=== PATIENT | female | born 1960 | race Two or more races ===

== ENCOUNTER → 2018-11-19 | Outpatient (CLI) | payer OTHER | END | disposition home or self-care (01) | LOC: NUCLEAR 07:00 | DX: I20.9 Angina pectoris, unspecified (principal) ==

== ENCOUNTER 2022-01-25 14:38 | Emergency (ER) | payer OTHER ==
[~2022-01-25] VITALS: Ht 180.3 cm; Wt 83.5 kg
[2022-01-25] MEDS ORDERED: [UNRECOGNIZED DRUG - OTHER] MC (14:46)
[2022-01-25] MEDS ORDERED: ANIMAL CHEWS1 EACH PO (14:46)
[2022-01-25] MEDS ORDERED: BACTRIM DS TAB1 EACH PO (18:02)
[2022-01-25] MEDS ORDERED: PEPCID AC20 MG PO (18:02)
== END 2022-01-25 18:04 | disposition home or self-care (01) ==
LOC: ER 14:38
DX: N39.0 Urinary tract infection, site not specified (principal); Z91.040 Latex allergy status; I10 Essential (primary) hypertension; B39.9 Histoplasmosis, unspecified; K80.20 Calculus of gallbladder without cholecystitis without obstruction

== ENCOUNTER 2024-05-12 10:15 | Inpatient (IN) | payer OTHER ==
[~2024-05-12] VITALS: Ht 58.4 cm; Wt 86.2 kg
[~2024-05-12 10:15] MED LIST: ANIMAL CHEWS1 EACH PO; BACTRIM DS TAB1 EACH PO; PEPCID AC20 MG PO; [UNRECOGNIZED DRUG - OTHER] MC
[2024-05-12 11:43] VITALS: BP 153/98
[2024-05-12] MEDS ORDERED: COZAAR25 MG PO (11:45)
[2024-05-12 11:46] VITALS: BP 138/84
[2024-05-21] MEDS ORDERED: CEFAZOLIN SODIUM 1,000 MG VIAL IV ONE (09:00)
[2024-05-21] MEDS ORDERED: POVIDONE-IODINE 118 ML BOTT TOP ONE (09:00)
[2024-05-21] MEDS ORDERED: MORPHINE SULFATE 4 MG/ML VIAL IV ONE ×2 (11:30→12:00)
[2024-05-21] MEDS ORDERED: PROMETHAZINE HCL 50 MG/ML AMPUL IM PRN (11:30)
[2024-05-21] MEDS ORDERED: RINGERS SOLUTION,LACTATED 1,000 ML IV SCH (11:30)
[2024-05-21] MEDS ORDERED: MEPERIDINE HCL/PF 50 MG/ML VIAL IM PRN (11:30)
[2024-05-21] MEDS ORDERED: CEFAZOLIN SODIUM 1,000 MG VIAL IV SCH (14:00)
[2024-05-21 18:45] VITALS: BP 138/84
[2024-05-22 00:08] VITALS: BP 107/69
[2024-05-22 01:49] LABS: HEMATOCRIT 33.4 % (36.0-45.00); HEMOGLOBIN 11.6 g/dL (12.0-15.00); MEAN CELL VOLUME 87.1 fL (80.00-100.00); MEAN CORPUSCULAR HEMOGLOBIN 30.4 pg (27.00-32.0); MEAN CORPUSCULAR HGB CONC 34.9 g/dl (32.0-36.0); PLATELET COUNT 192 K/uL (150-450); RED BLOOD COUNT 3.83 M/uL (4.00-6.00); RED CELL DISTRIBUTION WIDTH 14.3 % (11.5-14.5)
[2024-05-22 05:00] VITALS: BP 100/66
[2024-05-22] MEDS ORDERED: ACETAMINOPHEN 500 MG GEL..CAP PO PRN (08:30)
[2024-05-22] MEDS ORDERED: IBUprofen 800 MG TABLET PO PRN (08:30)
[2024-05-22] MEDS ORDERED: LOSARTAN POTASSIUM 25 MG TABLET PO SCH (09:00)
[2024-05-22 13:53] VITALS: BP 118/73
[2024-05-22 16:00] VITALS: BP 134/80
[2024-05-22 23:53] VITALS: BP 112/77
[2024-05-23 05:00] VITALS: BP 135/87
[2024-05-23 08:12] VITALS: BP 133/88
[2024-05-23] MEDS ORDERED: CIPROFLOXACIN HCL 500 MG TABLET PO NR (10:00)
[2024-05-23 18:14] VITALS: BP 140/90
[2024-05-23] MEDS ORDERED: CIPROFLOXACIN HCL 500 MG TABLET PO SCH (21:00)
[2024-05-24 00:41] VITALS: BP 113/74
[2024-05-24 08:04] VITALS: BP 137/78
[2024-05-24] MEDS ORDERED: IBUPROFEN800 MG PO (08:16)
== END 2024-05-24 09:43 | disposition home or self-care (01) | DRG 743 ==
LOC: O/R 05-21 04:41 → OB/GYN 05-21 07:00
PROVIDERS: ADMIT Specialist; ATTEND Specialist
PROC: 0JQC0ZZ Repair Pelvic Region Subcutaneous Tissue and Fascia, Open Approach (ICD-10-PCS; 2024-05-21)
PROC: 0UT97ZZ Resection of Uterus, Via Natural or Artificial Opening (ICD-10-PCS; principal; 2024-05-21 07:00)
DX: N81.4 Uterovaginal prolapse, unspecified (principal); N80.03 Adenomyosis of the uterus; Z20.822 Contact with and (suspected) exposure to COVID-19

== ENCOUNTER 2024-06-21 15:11 | Emergency (ER) | payer OTHER ==
[~2024-06-21] VITALS: Ht 180.3 cm; Wt 83.5 kg
[~2024-06-21 15:11] MED LIST changes: +COZAAR25 MG PO; +IBUPROFEN800 MG PO
[2024-06-21 15:29] VITALS: BP 140/80; O2SAT 99
[2024-06-21] MEDS ORDERED: KETOROLAC TROMETHAMINE 60 MG VIAL IM ONE ×2 (16:43→16:45)
[2024-06-21] MEDS ORDERED: MECLIZINE HCL 25 MG TABLET PO ONE ×2 (16:44→16:45)
[2024-06-21 17:48] LABS: HEMATOCRIT 39.3 % (36.0-45.00); HEMOGLOBIN 13.2 g/dL (12.0-15.00); MEAN CELL VOLUME 87.8 fL (80.00-100.00); MEAN CORPUSCULAR HEMOGLOBIN 29.5 pg (27.00-32.0); MEAN CORPUSCULAR HGB CONC 33.6 g/dl (32.0-36.0); PLATELET COUNT 215 K/uL (150-450); RED BLOOD COUNT 4.47 M/uL (4.00-6.00); RED CELL DISTRIBUTION WIDTH 14.2 % (11.5-14.5)
[2024-06-21 18:03] LABS: PH,URINE 5.5 (5.0-8.0); URINE APPEARANCE Clear; URINE BILIRRUBIN Negative (NEGATIVE); URINE BLOOD Negative; URINE COLOR Dark Yellow; URINE GLUCOSE Negative (NEGATIVE); URINE KETONE Negative (NEGATIVE); URINE LEUKOCYTE Small; URINE NITRATE Negative; URINE PROTEIN Negative (NEGATIVE); URINE UROBILINOGEN 0.2 E.U./dl
[2024-06-21 18:04] LABS: URINE BACTERIA 1479.6 uL (0.0-1933); URINE RBC 6.3 uL (0.0-20.8); URINE WBC 88.1 uL (0.0-23.2)
[2024-06-21 18:15] LABS: BILIRUBIN TOTAL 0.5 mg/dL (0.3-1.2); CALCIUM 10.2 mg/dL (8.5-10.1); CREATININE SERUM 0.8 mg/dL (0.55-1.02); GFR 72.68; GLOBULINA 3.9 G/DL (2.4-3.5); POTASSIUM 3.74 mEq/L (3.5-5.1); TOTAL PROTEIN 7.9 gm/dL (6.4-8.2)
[2024-06-21] MEDS ORDERED: DRAMAMINE25 M1 PO (20:49)
== END 2024-06-21 20:57 | disposition home or self-care (01) ==
LOC: ER 15:14
PROVIDERS: General Practice
DX: R42 Dizziness and giddiness (principal); Z20.822 Contact with and (suspected) exposure to COVID-19; I10 Essential (primary) hypertension; Z91.040 Latex allergy status
CPT/HCPCS: 36415; 70460; Q9965

== ENCOUNTER 2024-08-13 15:27 | Emergency (ER) | payer OTHER ==
[~2024-08-13] VITALS: Ht 180.3 cm; Wt 80.3 kg
[~2024-08-13 15:27] MED LIST changes: +DRAMAMINE25 M1 PO
[2024-08-13] MEDS ORDERED: FAMOTIDINE/PF 20 MG/2 ML VIAL IV PUSH STA (16:50)
[2024-08-13] MEDS ORDERED: FAMOTIDINE/PF 20 MG/2 ML VIAL ONE (16:55)
[2024-08-13 17:09] LABS: HEMATOCRIT 40.1 % (36.0-45.00); HEMOGLOBIN 13.3 g/dL (12.0-15.00); MEAN CELL VOLUME 86.9 fL (80.00-100.00); MEAN CORPUSCULAR HEMOGLOBIN 28.9 pg (27.00-32.0); MEAN CORPUSCULAR HGB CONC 33.2 g/dl (32.0-36.0); PLATELET COUNT 238 K/uL (150-450); RED BLOOD COUNT 4.61 M/uL (4.00-6.00); RED CELL DISTRIBUTION WIDTH 13.8 % (11.5-14.5)
[2024-08-13 17:23] LABS: URINE APPEARANCE Clear; URINE BILIRRUBIN Negative (NEGATIVE); URINE BLOOD Negative; URINE COLOR Yellow; URINE KETONE Trace (NEGATIVE); URINE LEUKOCYTE Negative; URINE NITRATE Negative; URINE PROTEIN Negative (NEGATIVE); URINE UROBILINOGEN 0.2 E.U./dl
[2024-08-13 17:28] LABS: URINE BACTERIA 4818.8 uL (0.0-1933); URINE EPITHELIAL CELLS 37.8 uL (0.0-38.8); URINE RBC 8.2 uL (0.0-20.8); URINE WBC 37.1 uL (0.0-23.2)
[2024-08-13 17:37] LABS: AMYLASE 42 U/L (25-115); LIPASE 32 U/L (13-75)
[2024-08-13 17:41] LABS: ALBUMIN 3.6 gm/dL (3.4-5.0); BILIRUBIN TOTAL 0.41 mg/dL (0.3-1.2); CALCIUM 9.1 mg/dL (8.5-10.1); CREATININE SERUM 0.77 mg/dL (0.55-1.02); GFR 75.71; GLOBULINA 3.2 G/DL (2.4-3.5); POTASSIUM 3.91 mEq/L (3.5-5.1); TOTAL PROTEIN 6.8 gm/dL (6.4-8.2)
[2024-08-13 17:42] LABS: URINE CAST 0.73 uL (0.0-1.40); URINE GLUCOSE >=1000 MG/DL (NEGATIVE)
[2024-08-13] MEDS ORDERED: INSULIN REGULAR, HUMAN 1,000 UNIT/10 ML UNITS IV STA (17:56)
== END 2024-08-13 19:16 | disposition home or self-care (01) ==
LOC: ER 15:29
PROVIDERS: General Practice
DX: R73.9 Hyperglycemia, unspecified (principal); I10 Essential (primary) hypertension; Z91.040 Latex allergy status

== ENCOUNTER 2024-08-19 11:53 | Outpatient (CLI) | payer OTHER | END 2024-08-19 12:13 | disposition home or self-care (01) | LOC: MRI 11:53 | PROVIDERS: ATTEND Specialist | DX: R42 Dizziness and giddiness (principal); H53.9 Unspecified visual disturbance; R26.9 Unspecified abnormalities of gait and mobility; R35.89 Other polyuria; R73.9 Hyperglycemia, unspecified; I10 Essential (primary) hypertension | CPT/HCPCS: 70553 ==

== ENCOUNTER 2024-08-23 07:07 | Outpatient (CLI) | payer OTHER | END 2024-08-23 07:29 | disposition home or self-care (01) | LOC: TOM 07:07 | PROVIDERS: ATTEND Internal Medicine Gastroenterology | DX: R10.9 Unspecified abdominal pain (principal) ==

== ENCOUNTER 2024-09-14 12:44 | Outpatient (CLI) | payer OTHER | END 2024-09-14 12:45 | disposition home or self-care (01) | LOC: MRI 12:44 | PROVIDERS: ATTEND Physical Medicine & Rehabilitation | DX: M54.50 Low back pain, unspecified (principal); M47.816 Spondylosis without myelopathy or radiculopathy, lumbar region; M25.552 Pain in left hip; M70.62 Trochanteric bursitis, left hip; M25.562 Pain in left knee; M17.12 Unilateral primary osteoarthritis, left knee | CPT/HCPCS: 72148 ==